=== PATIENT | male | born 1945 | race Caucasian/White ===

== ENCOUNTER 2017-01-08 21:08 | Emergency (ER) | payer MEDICARE ==
--- NOTE | 2017-01-09 20:05 | ER ---
ADMIT: 01/08/2017 RM/LOC: ER [facility] MR#: [id number] [place], [place] [id number] [address] [place] [address] Emergency Room Report SEX: M AGE: 71 : 1945 DATE: 01/08/2017 TIME: 2108 hours. Please refer to my T-sheet for complete H and P. Briefly, the patient is a 71-year-old, that they were traveling through from [place] when he fell, hurt his left knee, and his right shoulder. He was in the shower, came by ambulance. They gave him a dose of fentanyl, he was feeling better. He is able to walk on it, but he said it is hurting and they get long way to travel, wanted to looked at. PHYSICAL EXAMINATION: VITAL SIGNS: Here are stable. HEENT: Grossly normal. EXTREMITIES: Right shoulder diffuse tenderness. No gross deformity. No evidence of rotator cuff weakness. Left knee, he has a contusion and abrasion to the lateral aspect, but stable. Neurovascularly intact. Distally, no other bony prominence or tenderness. EMERGENCY DEPARTMENT COURSE: Left knee and right shoulder x-rays were both negative with degenerative joint disease is noted. He was given Benadryl 25 IV, was feeling much better. He was ready for discharge. ASSESSMENT: 1. Left knee contusion. 2. Right shoulder contusion. 3. Fall with no other obvious injury. PLAN: Return if worse. Rest, ice, elevate, use his medications he has at home. He is already on chronic narcotics. Follow up with Dr. Gallardo as needed. Hussain Olivares MD/ hallie JOB #: [id number] CC: Hussain Olivares MD, Attending Physician [facility]-Ideal Physician, Family Physician
== END 2017-01-08 22:55 | disposition home or self-care (01) ==
LOC: ER 21:08
DX: S80.02XA Contusion of left knee, initial encounter (principal); S40.011A Contusion of right shoulder, initial encounter; I10 Essential (primary) hypertension; E11.9 Type 2 diabetes mellitus without complications; F41.9 Anxiety disorder, unspecified; I25.2 Old myocardial infarction; I73.9 Peripheral vascular disease, unspecified; Z95.1 Presence of aortocoronary bypass graft; Z98.890 Other specified postprocedural states; Z91.041 Radiographic dye allergy status; Z79.84 Long term (current) use of oral hypoglycemic drugs; Z79.82 Long term (current) use of aspirin; Z79.899 Other long term (current) drug therapy; W18.30XA Fall on same level, unspecified, initial encounter; Y92.009 Unspecified place in unspecified non-institutional (private) residence as the place of occurrence of the external cause